=== PATIENT | female | born 1950 | race Caucasian/White ===

== ENCOUNTER → 2018-07-13 | Outpatient (CLI) | payer OTHER ==
[~2018-07-13] MED LIST: ASA5UEC PO; NEURONTIN 300300 M1 PO; PROZAC20 MG PO; XANAX 0.5 MG0.5 MG PO
--- NOTE | ~2018-07-13 | PAINCON ---
[address] [address] PAIN MANAGEMENT CONSULTATION Name: GORDON VILLARREAL Room: [facility]#: [id number] Admission: 07/13/18 Attend Phys: Liam Amezquita MD Discharge: Date of : 46 Report #: [id number] THIS REPORT FOR: //name// CC: Jose Antonio Amezquita DATE OF SERVICE: 07/13/2018 CHIEF COMPLAINT: Low back pain. HISTORY: The patient is a 68-year-old female who has been seen in the pain clinic. She has pain in the low back area. She does have a number of trigger points in the low back area. She rates her pain as an 8/10. She has returned today for treatment. As you may recall, she has undergone chiropractic treatment. She has undergone physical therapy. Continues to use gabapentin. She feels that this medication offers some benefit, but wears off relatively rapidly. ALLERGIES: No known drug allergies. CURRENT MEDICATIONS: Alprazolam 0.5 mg b.i.d., aspirin 325 mg 2 tablets daily, Prozac 20 mg daily, gabapentin 300 mg b.i.d. PAIN CLINIC ASSESSMENT/PQRS: 1. The patient does have some arthritic change in her low back area. She is not being treated for rheumatoid arthritis. 2. Height 5 feet 3 inches, weight 210 pounds, BMI is 37.3. 3. VITAL SIGNS: Blood pressure 143/78, heart rate 54, respiratory rate 16, room air saturation 99%, temperature 98.2. 4. Pain intensity 8/10. 5. Fall history: The patient has not fallen in the last 3 months. 6. Blood thinner: The patient is not on a blood thinner medication. 7. Hypertension: The patient is not being treated for hypertension. 8. Opioids: The patient is not on her regular opioid regimen. 9. Risk assessment: Low for opioid use. 10. Functional assessment tool. 11. Drug use: The patient denies use of illicit drugs. 12. Tobacco: The patient denies use of tobacco. 13. Alcohol: The patient denies frequent use of alcoholic beverages. PHYSICAL EXAMINATION: GENERAL: The patient is a well-developed, well-nourished white female. Appears her stated age. She is alert and oriented x 3. Her affect is appropriate. Speech is fluent. HEENT: Normocephalic, atraumatic. Extraocular eye muscles intact. The [place] [address] PAIN MANAGEMENT CONSULTATION Name: GORDON VILLARREAL Room: [facility]#: [id number] Admission: 07/13/18 Attend Phys: Liam Amezquita MD Discharge: Date of : 46 Report #: [id number] NECK: Without adenopathy or JVD. LUNGS: Clear to auscultation. HEART: Regular rate. S1, S2. ABDOMEN: Nontender. Bowel sounds present. MUSCULOSKELETAL: The patient without significant scoliosis, kyphosis or lordosis. Does have pain and discomfort in the right as well as the left posterior area near the gluteus jaelyn on the left and right. Palpation in these areas does reproduce pain and discomfort, which the patient is experiencing. Left and right lateral rotation cause some increased pain in the low back area. IMPRESSION: 1. Low back pain in the left and right paraspinous areas - myofascial. 2. History of pain radiating down into the right sacroiliac tract involving the right calf. RECOMMENDATIONS: It appears today the patient has most of her pain and discomfort is located in the low back area. Palpation in the trigger points near the left and right posterior superior iliac spine area do reproduce a component of her pain at this juncture. We will proceed with a trigger point injection to the two trigger point areas. Risks and benefits of the procedure were discussed. We will also have the patient follow up with physical therapy. PROCEDURE NOTE: Risks and benefits of trigger point injection were explained. Possible complications of the procedure, which could include infection, worsening of pain, nerve damage, bleeding and the patient elects to proceed. The patient was placed in the sitting position. She was perpendicular to the bed. A chair was placed under her feet. The patient held on to a pillow. She leaned forward as though tying her shoes. Palpation of the left as well as the right posterior superior iliac spine areas reproduced two trigger points. At this point, the patient would like to proceed with the procedure. Her back was sterilely prepped with a chlorhexidine solution in the left side and the right side. This area was then infiltrated with 0.5% bupivacaine and 80 mg Depo-Medrol was placed on the right side. Trigger point was identified near the gluteus jaelyn and the posterior superior iliac spine near the latissimus dorsi. The second trigger point on the contralateral side was treated in a like fashion. A 25-gauge needle was then advanced into the area near the gluteus jaelyn latissimus dorsi and the posterior superior iliac spine. The patient states this was the trigger point. A total of 8 mL of 0.5% bupivacaine and 80 mg Depo-Medrol was placed on each side. The patient's pain decreased from 8 to 2 at the time of discharge. She will follow up in the future as needed. She will also go to physical therapy for stretching [place] [address] PAIN MANAGEMENT CONSULTATION Name: GORDON VILLARREAL Room: [facility]#: [id number] Admission: 07/13/18 Attend Phys: Liam Amezquita MD Discharge: Date of : 46 Report #: [id number] exercises for myofascial pain. We would like to thank you for letting us participate in her care. We hope she continues to improve. By: [id number]. Misha Amezquita MD /LIZZIE
== END | disposition home or self-care (01) ==
LOC: M.PC 05:11
DX: M79.18 Myalgia, other site (principal); M54.5 Low back pain; Z79.82 Long term (current) use of aspirin; Z79.899 Other long term (current) drug therapy; Z98.890 Other specified postprocedural states